=== PATIENT | male | born 1960 | race Caucasian/White ===

== ENCOUNTER 2017-10-18 12:24 | Emergency (ER) ==
[2017-10-18 12:29] VITALS: BP 120/72; TEMP 98; BMI 27.3
[2017-10-18] MEDS ORDERED: BOOSTRIX IM ONE (12:51)
[2017-10-18] MEDS ORDERED: LIDOCAINE HCL 1% SDV SUBCUT STA (12:51)
--- NOTE | 2017-10-18 13:22 | ED.PDOC ---
General ED Provider: Dr. TRIP ABDI Chief Complaint: Hand Laceration Stated Complaint: Lt Hand Laceration. 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 Time Seen by Physician: 12:30 Mode of Arrival: Walk-In Information Source: Patient Primary Care Provider: YVONNE LEY Nursing and Triage Documentation Reviewed and Agree: Yes Does patient meet sepsis criteria?: No System Inflammatory Response Syndrome: Not Applicable Sepsis Protocol: For patient's 13 years and over: Temp is 96.8 and below OR 101 and greater Pulse >90 BPM Resp >20/minute Acutely Altered Mental Status Are patient's symptoms suggestive of a new infection, such as: -Pneumonia -Skin, Soft Tissue -Endocarditis -UTI -Bone, Joint Infection -Implantable Device -Acute Abdominal Infection -Wound Infection -Meningitis -Blood Stream Catheter Infection -Unknown Trauma/Injury Complaint Exam - Trauma Complaint/Exam Location of Pain or Injury: Reports: LUE (Hand between thumb and index finger) Mechanism of Injury: Reports: Incised Onset/Duration: this am Symptoms Are: Still present Timing of Treatment: Immediate Initial Severity: Moderate Current Severity: Moderate Character: Reports: Burning, Sharp Aggravating: Reports: Movement Alleviating: Reports: Rest, Elevation Associated Signs and Symptoms: Denies: LOC, Confusion, Memory loss, Lethargy, Vomiting, Bleeding, Bruising, Swelling, Extremity disuse, Painful respiration, Hoarseness, Dysphagia, Hemoptysis, Significant blood loss Related History: Denies: Similar episode Penetrating Injury Risk Factors: Reports: None Related Surgical History: Reports: None Nexus Low Risk Criteria: No focal neuro deficit Compartment Syndrome Risk Factors: Present: Pain Skin Findings: Present: Laceration, Swelling Differential Diagnoses: Laceration Review of Systems - Review Of Systems Constitutional: Reports: No symptoms Eyes: Reports: No symptoms Ears, Nose, Mouth, Throat: Reports: No symptoms Respiratory: Reports: No symptoms Cardiac: Reports: No symptoms GI: Reports: No symptoms : Reports: No symptoms Musculoskeletal: Reports: No symptoms Skin: Reports: No symptoms Neurological: Reports: No symptoms Endocrine: Reports: No symptoms Hematologic/Lymphatic: Reports: No symptoms All Other Systems: Reviewed and Negative Past Medical History - Past Medical History Endocrine: Reports: DM 2 Cardiovascular: Reports: Unknown Respiratory: Reports: None Hematological: Reports: None Gastrointestinal: Reports: None Genitourinary: Reports: None Neuro/Psych: Reports: None Musculoskeletal: Reports: Joint Pain Cancer: Reports: None - Surgical History General Surgical History: Reports: None, Unknown - Family History Family History: Reports: None, Unknown - Social History Smoking Status: Never smoker Hx Substance Use: No Alcohol Screening: None - Immunizations Tetanus Shot up to Date: No Physical Exam - Physical Exam Appearance: Well-appearing, No pain distress, Well-nourished Eyes: LAUREN, EOMI, Conjunctiva clear ENT: Ears normal, Nose normal, Oropharynx normal Respiratory: Airway patent, Breath sounds clear, Breath sounds equal, Respirations nonlabored Cardiovascular: RRR, Pulses normal, No rub, No murmur GI/: Soft, Nontender, No masses, Bowel sounds normal, No Organomegaly Musculoskeletal: Normal strength, ROM intact, No edema, No calf tenderness, Limited ROM (r) Skin: Warm, Dry, Normal color Neurological: Sensation intact, Motor intact, Reflexes intact, Cranial nerves intact, Alert, Oriented Psychiatric: Affect appropriate, Mood appropriate Procedures - Laceration/Wound Repair Lt Hand Wound Description: Linear, Other (interdigital -1st and 2nd phalynx) Wound Explored: Contaminated Wound Irrigated: Yes (Hibiclens and normal saline) Wound Prep: Hibiclens, Betadine Anesthesia: Lidocaine Wound Repaired With: Sutures Suture Size and Type: 3- prolene Number of Sutures: 6 Sterile Dressing Applied?: Yes Re-Evaluation - Re-Evaluation Time of Re-Evaluation: 13:15 Status: Improved Vital Signs Stable: Yes Appearance: NAD Lungs: Clear Skin: Warm and Dry CV: RRR Critical Care Note - Critical Care Note Total Time (mins): 30 Course - Course Orders, Labs, Meds: Orders Category Date Time Status Diphth,Pertuss(Acell),Tet Vac [Boostrix] MEDS 10/18/17 12:51 Discontinued 0.5 ml IM .ONCE ONE Lidocaine HCl/Pf [Lidocaine HCl 1% Sdv] MEDS 10/18/17 12:51 Discontinued 5 ml SUBCUT ONCE STA Medications Discontinued Medications Generic Name Dose Route Start Last Admin Trade Name Freq PRN Reason Stop Dose Admin Diphtheria/Pertussis/Tetanus Vacc 0.5 ml 10/18/17 12:51 10/18/17 12:56 Boostrix IM 10/18/17 12:52 0.5 ml .ONCE ONE Administration Lidocaine HCl 5 ml 10/18/17 12:51 10/18/17 12:59 Lidocaine Hcl 1% Sdv SUBCUT 10/18/17 12:52 5 ml ONCE STA Administration Vital Signs: Temp Pulse Resp BP Pulse Ox 10/18/17 12:25 98.0 F 74 18 120/72 96 Departure - Departure Time of Disposition: 13:30 Disposition: HOME SELF-CARE Discharge Problem: Laceration of hand Instructions: Care For Your Stitches (ED), Laceration (ED) Condition: Good Pt referred to PMD for follow-up: Yes (7 days) IPMP verified?: No Additional Instructions: Wound care Antiseptic solution cleans wound daily Keep area clean and dry Sutures out in 7-10 days depending on degree of healing. See PCP in 7 days Take antibiotics as directed Prescriptions: Cephalexin [Keflex] 500 mg PO TID #21 capsule Allergies/Adverse Reactions: Allergies No Known Allergies Allergy (Verified 10/18/17 12:29) Home Medications: Ambulatory Orders Cephalexin [Keflex] 500 mg PO TID #21 capsule 10/18/17 Gabapentin [Neurontin] 600 mg PO TID 10/18/17 Insulin Degludec [Tresiba Flextouch U-100] 80 unit SQ DAILY 10/18/17 Disposition Discussed With: Patient, Family
== END 2017-10-18 14:03 | disposition home or self-care (01) ==
LOC: ED 12:24
DX: S61.412A Laceration without foreign body of left hand, initial encounter (principal); W26.8XXA Contact with other sharp object(s), not elsewhere classified, initial encounter
CPT/HCPCS: 90471; 90715; 99283